=== PATIENT | female | born 1940 | race Caucasian/White ===

== ENCOUNTER 2017-11-03 09:20 | Outpatient (CLI) | payer OTHER | END 2017-11-03 09:29 | disposition home or self-care (01) | LOC: SONOGRAMA 09:20 | DX: R22.2 Localized swelling, mass and lump, trunk (principal) ==

== ENCOUNTER 2019-04-20 11:35 | Emergency (ER) | payer OTHER ==
[~2019-04-20] VITALS: Ht 160 cm; Wt 48.5 kg
== END 2019-04-20 16:15 | disposition home or self-care (01) ==
LOC: ER 11:35
DX: S80.812A Abrasion, left lower leg, initial encounter (principal); W22.8XXA Striking against or struck by other objects, initial encounter; Y93.89 Activity, other specified; Y92.89 Other specified places as the place of occurrence of the external cause; Y99.8 Other external cause status